=== PATIENT | female | born 1990 | race American Indian/Alaskan Native ===

== ENCOUNTER 2016-04-20 13:07 | Outpatient (CLI) | payer MEDICAID ==
[2016-04-20] MEDS ORDERED: LACTATED RINGERS 500 ML IV ONE (14:05)
[2016-04-20 15:17] LABS: Hematocrit 35.2 % (30.3-42.9); Hemoglobin 11.3 gm/dl (10.1-14.3); Mean Corpuscular HGB Conc 32 % (30-34); Platelet Count 186 K/mm3 (140-440); Red Blood Count 5.12 M/mm3 (3.65-5.03); Red Cell Distribution Width 15.7 % (13.2-15.2); White Blood Count 11.6 K/mm3 (4.5-11.0)
[2016-04-20 15:21] LABS: Mean Corpuscular Hemoglobin 22 pg (28-32); Mean Corpuscular Volume 69 fl (79-97)
[2016-04-20 15:23] LABS: Bilirubin,Urine NEG (Negative); Blood,Urine NEG (Negative); Ketones,Urine 20 mg/dL (Negative); Leukocyte Esterase,Urine TR (Negative); Mucus,Urine FEW /HPF; Nitrite,Urine NEG (Negative); Urobilinogen,Urine < 2.0 mg/dL (<2.0)
[2016-04-20 15:38] LABS: Alanine Aminotransferase 9 units/L (7-56); Lactate Dehydrogenase 150 units/L (91-180); Uric Acid 3.5 mg/dL (3.5-7.6)
[2016-04-20 16:28] VITALS: BP 134/63
== END 2016-04-20 16:30 | disposition home or self-care (01) ==
LOC: TRG 13:07
PROVIDERS: ATTEND Obstetrics & Gynecology
DX: O47.9 False labor, unspecified (principal); Z3A.00 Weeks of gestation of pregnancy not specified
CPT/HCPCS: 36415; 59025; 81001; 82565; 83615; 84450; 84460; 84550; 85027

== ENCOUNTER 2020-03-10 00:30 | Emergency (ER) | payer MEDICAID ==
[2020-03-10 00:49] VITALS: BP 185/117
--- NOTE | 2020-03-10 01:40 | XRay Report ---
ABDOMEN AP SUPINE 0122 INDICATION: Rectal foreign body COMPARISON: None available. FINDINGS: Bowel gas pattern is unremarkable. In the area of the mid rectum is a cylindrical electroni c device most likely representing a type of vibrator. This measures 8.4 cm in length with a transvers e diameter of 1.9 cm. Signer Name: Prasanth Pruett MD Signed: 03/10/2020 1:35 AM Workstation Name: [id number]
--- NOTE | 2020-03-10 05:45 | XRay Report ---
ABDOMEN AP SUPINE 0540 INDICATION: FB in rectum COMPARISON: 0122 FINDINGS: Previous rectal area foreign body is no longer seen. Bowel gas pattern is unremarkable. Signer Name: Prasanth Pruett MD Signed: 03/10/2020 5:40 AM Workstation Name: [id number]
--- NOTE | 2020-03-10 06:44 | Emergency Department Report ---
ED General Adult HPI - General Chief complaint: Pain General Stated complaint: FOREIGH OBJECT Time Seen by Provider: 03/10/20 06:20 Source: patient Mode of arrival: Ambulatory Limitations: No Limitations - History of Present Illness Initial comments: 29-year-old morbidly obese -[place] female presents emergency department complaining of a rectal foreign body in the form of a vibrator that is lost in her rectal area and causes spasms to the pelvic area she reports no bleeding reports no nausea vomiting reports no fevers chills or sweats or abdominal pain presents emergency department to have help with removal - Related Data Home Medications Medication Instructions Recorded Confirmed Last Taken Methyldopa 500 mg PO BID 12/23/13 02/15/14 02/15/14 11:00 500 mg Pnv,Calcium 72/Iron/Folic Acid 1 tab PO DAILY 12/23/13 02/15/14 02/14/14 22:00 [Pnv Plus Multivit Tab] 1 tab oral glyBURIDE [Glyburide] 2.5 mg PO BID 12/23/13 02/15/14 02/15/14 11:00 2.5mg oral Previous Rx's Medication Instructions Recorded Last Taken Type Ibuprofen [Motrin 800 MG tab] 800 mg PO Q6H PRN #30 tablet 02/16/14 Unknown Rx oxyCODONE /ACETAMINOPHEN [Percocet 1 tab PO Q4HR #30 tablet 02/16/14 Unknown Rx 5/325 mg] Sulfamethoxazole/Trimethoprim 1 each PO BID #20 tablet 03/09/14 Unknown Rx [Bactrim Ds] Allergies Allergy/AdvReac Type Severity Reaction Status Date / Time No Known Allergies Allergy Verified 03/09/14 09:53 ED Review of Systems ROS: Stated complaint: FOREIGH OBJECT Other details as noted in HPI Comment: All other systems reviewed and negative ED Past Medical Hx - Past Medical History Hx Hypertension: Yes (pt reports PIH) Hx Heart Attack/AMI: No Hx Congestive Heart Failure: No Hx Diabetes: Yes (hx of gestional with last preg.) Hx Deep Vein Thrombosis: No Hx Liver Disease: No Hx Renal Disease: No Hx Sickle Cell Disease: No Hx Seizures: No Hx Asthma: No Hx COPD: No Hx HIV: No - Surgical History Additional Surgical History: X 2 - Social History Smoking Status: Never Smoker Substance Use Type: None - Medications Home Medications: Home Medications Medication Instructions Recorded Confirmed Last Taken Type Methyldopa 500 mg PO BID 12/23/13 02/15/14 02/15/14 11:00 History 500 mg Pnv,Calcium 72/Iron/Folic Acid 1 tab PO DAILY 12/23/13 02/15/14 02/14/14 22:00 History [Pnv Plus Multivit Tab] 1 tab oral glyBURIDE [Glyburide] 2.5 mg PO BID 12/23/13 02/15/14 02/15/14 11:00 History 2.5mg oral Ibuprofen [Motrin 800 MG tab] 800 mg PO Q6H PRN #30 tablet 02/16/14 Unknown Rx oxyCODONE /ACETAMINOPHEN [Percocet 1 tab PO Q4HR #30 tablet 02/16/14 Unknown Rx 5/325 mg] Sulfamethoxazole/Trimethoprim 1 each PO BID #20 tablet 03/09/14 Unknown Rx [Bactrim Ds] ED Physical Exam - General Limitations: No Limitations General appearance: alert, in no apparent distress - Head Head exam: Present: atraumatic, normocephalic - Eye Eye exam: Present: normal appearance - ENT ENT exam: Present: mucous membranes moist - Neck Neck exam: Present: normal inspection - Respiratory Respiratory exam: Present: normal lung sounds bilaterally. Absent: respiratory distress - Cardiovascular Cardiovascular Exam: Present: regular rate, normal rhythm. Absent: systolic murmur, diastolic murmur, rubs, gallop - GI/Abdominal GI/Abdominal exam: Present: soft, normal bowel sounds. Absent: tenderness, guarding, rebound, rigid - Extremities Exam Extremities exam: Present: normal inspection - Back Exam Back exam: Present: normal inspection - Neurological Exam Neurological exam: Present: alert, oriented X3 - Psychiatric Psychiatric exam: Present: normal affect, normal mood - Skin Skin exam: Present: warm, dry, intact, normal color. 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 PMH she does admit to foreign body has been removed - Medical Decision Making 29-year-old female with a large rectal foreign body prior to arrival to the emergency department had a bowel movement while she was in the emergency department with a rectal foreign body was thought to have, but she was unable to verify repeated the KUB and found that her foreign body have been resolved there is no lingering pain or signs of any rectal trauma Critical care attestation.: If time is entered above; I have spent that time in minutes in the direct care of this critically ill patient, excluding procedure time. ED Disposition Clinical Impression: Rectal foreign body Disposition: [id number] TO HOME OR SELFCARE Is pt being admited?: No Does the pt Need Aspirin: No Condition: Stable Instructions: Rectal Foreign Body Removal Referrals: PRIMARY CARE, [Primary Care Provider] - 3-5 Days
== END 2020-03-10 06:47 | disposition home or self-care (01) ==
LOC: ED 00:30
DX: T18.5XXA Foreign body in anus and rectum, initial encounter (principal); I10 Essential (primary) hypertension; E11.9 Type 2 diabetes mellitus without complications; Z98.890 Other specified postprocedural states; Z79.1 Long term (current) use of non-steroidal anti-inflammatories (NSAID); Z79.899 Other long term (current) drug therapy; Y92.89 Other specified places as the place of occurrence of the external cause
CPT/HCPCS: 74018